=== PATIENT | female | born 1995 | race African-American/Black ===

== ENCOUNTER 2017-05-31 16:16 | Observation (INO) | payer MEDICAID ==
[~2017-05-31] VITALS: Ht 165.1 cm; Wt 95.3 kg
[2017-05-31] MEDS ORDERED: PNV1TABL76 PO (16:44)
[2017-05-31] MEDS ORDERED: DEXT 5%/LACTATED RINGERS 1,000 ML IV SCH (16:45)
[2017-05-31 17:09] LABS: BASOPHILS % 0.2 % (0.0-2.0); EOSINOPHILS % 0.6 % (0.0-5.0); HEMATOCRIT. 31.5 % (36.0-48.0); HEMOGLOBIN. 10.7 g/dL (12.0-16.0); LYMPHOCYTES % 10.7 % (20.0-50.0); MEAN CORPUSCULAR VOLUME 82.4 fL (81.0-99.0); MONOCYTES % 5.4 % (2.0-8.0); NEUTROPHILS % 83.1 % (40.0-76.0); PLATELET 192 x1000/uL (130-400); RED BLOOD CELL COUNT 3.82 mill/uL (4.2-5.4); RED CELL DISTRIBUTION WIDTH 15.2 % (11.6-14.6)
[2017-05-31 17:11] LABS: CLARITY URINE CLOUDY (CLEAR); COLOR URINE DARK YELLOW (YELLOW); KETONES URINE 2+ (NEGATIVE); LEUKOCYTE ESTERASE URINE 3+ (NEGATIVE); NITRITE URINE NEGATIVE (NEGATIVE); OCCULT BLOOD URINE NEGATIVE (NEGATIVE); PROTEIN URINE 1+ (NEGATIVE); SPECIFIC GRAVITY URINE 1.027 (1.005-1.030)
[2017-05-31 17:12] LABS: CHLORIDE 106 mEq/L (98-107)
[2017-05-31] MEDS ORDERED: CEFAZOLIN 2,000 MG in DEXT 5% WATER 100 ML IV NR (18:15)
[2017-05-31] MEDS ORDERED: CEFAZOLIN 2,000 MG in DEXTROSE 5% WATER 50 ML IV NR (18:27)
== END 2017-05-31 19:15 | disposition home or self-care (01) ==
LOC: INTOOBSV 16:16 → L&D 16:16
PROVIDERS: ADMIT Obstetrics & Gynecology; ATTEND Obstetrics & Gynecology
DX: O26.899 Other specified pregnancy related conditions, unspecified trimester (principal); R55 Syncope and collapse; Z3A.00 Weeks of gestation of pregnancy not specified
CPT/HCPCS: 36415; 76805; 76818; 80053; 81001; 85025; 96365; 99281; G0378; J0690; 96360; 96361; J7060; J7121

== ENCOUNTER 2017-06-18 00:04 | Inpatient (IN) | payer MEDICAID ==
[~2017-06-18] VITALS: Ht 165.1 cm; Wt 96.6 kg
[~2017-06-18 00:04] MED LIST: PNV1TABL76 PO
[2017-06-18] MEDS ORDERED: METHYLERGONOVINE MALEATE 0.2 MG/ML IM PRN (00:45)
[2017-06-18] MEDS ORDERED: LIDOCAINE HCL 1% 20ML VIAL (Pyxis) INJ INFIL SCH (00:45)
[2017-06-18] MEDS ORDERED: NALOXONE HCL 0.4 MG/ML 1ML VIAL IM PRN (00:45)
[2017-06-18] MEDS ORDERED: AMPICILLIN 2,000 MG in SODIUM CHLORIDE 0.9% 100 ML IV SCH (00:45)
[2017-06-18] MEDS ORDERED: CARBOPROST TROMETHAMINE 250 MCG/ML AMPUL IM PRN (00:45)
[2017-06-18] MEDS ORDERED: BUTORPHANOL TARTRATE 2 MG/ML VIAL IV PRN (00:45)
[2017-06-18] MEDS ORDERED: AMPICILLIN IV SCH (01:00)
[2017-06-18] MEDS ORDERED: DEXT 5% IV SCH (01:00)
[2017-06-18] MEDS ORDERED: WATER IV SCH (01:00)
[2017-06-18] MEDS: LACTATED RINGERS 1,000 ML IV SCH ×4 (01:09→22:43)
[2017-06-18 01:38] LABS: BASOPHILS % 0.1 % (0.0-2.0); EOSINOPHILS % 0.4 % (0.0-5.0); HEMOGLOBIN. 10.2 g/dL (12.0-16.0); LYMPHOCYTES % 14.8 % (20.0-50.0); MEAN CORPUSCULAR HEMOGLOBIN 26.7 pg (28.0-32.0); MEAN CORPUSCULAR VOLUME 80.6 fL (81.0-99.0); MEAN PLATELET VOLUME 9.2 fl (7.4-10.4); MONOCYTES % 5.9 % (2.0-8.0); NEUTROPHILS % 78.8 % (40.0-76.0); PLATELET 239 x1000/uL (130-400); RED BLOOD CELL COUNT 3.84 mill/uL (4.2-5.4); RED CELL DISTRIBUTION WIDTH 15.4 % (11.6-14.6)
[2017-06-18 01:39] LABS: CLARITY URINE CLEAR (CLEAR); COLOR URINE YELLOW (YELLOW); KETONES URINE NEGATIVE (NEGATIVE); LEUKOCYTE ESTERASE URINE 3+ (NEGATIVE); NITRITE URINE NEGATIVE (NEGATIVE); OCCULT BLOOD URINE TRACE (NEGATIVE); PH URINE 6.5 (4.5-8.0); PROTEIN URINE NEGATIVE (NEGATIVE); SPECIFIC GRAVITY URINE 1.007 (1.005-1.030); UROBILINOGEN URINE 0.2 E.U./dL (0.2-1.0)
[2017-06-18 01:46] LABS: PARTIAL THROMBOPLASTIN TIME 26.1 sec (23.4-31.0); PROTHROMBIN TIME 10.3 sec (9.4-11.6)
[2017-06-18 01:49] LABS: *AMPHETAMINES SCREEN URINE NEGATIVE (NEGATIVE); *BARBITURATES SCREEN URINE NEGATIVE (NEGATIVE); *BENZODIAZEPINES SCREEN URINE NEGATIVE (NEGATIVE); *COCAINE SCREEN URINE NEGATIVE (NEGATIVE); CANNABINOID URINE SCREEN NEGATIVE (NEGATIVE); METHADONE URINE SCREEN NEGATIVE (NEGATIVE); OPIATES URINE SCREEN NEGATIVE (NEGATIVE); PHENCYCLIDINE URINE SCREEN NEGATIVE (NEGATIVE)
[2017-06-18] MEDS: MISOPROSTOL 100MCG TABLET VG SCH ×3 (02:00→11:29)
[2017-06-18] MEDS ORDERED: AMPICILLIN 1,000 MG in SODIUM CHLORIDE 0.9% 50 ML IV SCH (08:00)
[2017-06-18 11:18] LABS: HEPATITIS B SURFACE ANTIGEN NEGATIVE
[2017-06-18] MEDS: DEXT 5%/LR + PITOCIN 20UNITS/L 1,000 ML IV SCH (18:33)
[2017-06-18] MEDS ORDERED: BUPIVACAINE HCL/NS/PF EPIDURAL 100 ML EP ONE (23:30)
[2017-06-18] MEDS ORDERED: BUPIVACAINE HCL/PF 0.25% (2.5MG/ML) 10ML ONE (23:31)
[2017-06-18] MEDS ORDERED: FENTANYL CITRATE/PF 50MCG/ML 5ML VIAL ONE (23:31)
[2017-06-18] MEDS ORDERED: EPHEDRINE SULFATE 50MG/ML VIAL ONE (23:53)
[2017-06-18] MEDS ORDERED: SODIUM CHLORIDE 0.9% 10ML VIAL ONE (23:53)
[2017-06-19] MEDS ORDERED: BUPIVACAINE HCL/NS/PF EPIDURAL 100 ML EP SCH
[2017-06-19] MEDS: LACTATED RINGERS 1,000 ML IV SCH (00:22)
[2017-06-19] MEDS ORDERED: LIDOCAINE HCL/PF 2% 20 MG/ML 10ML VIAL ONE ×2 (05:35→07:03)
[2017-06-19] MEDS ORDERED: LACTATED RINGERS 1,000 ML IV SCH (07:24)
[2017-06-19] MEDS ORDERED: CARBOPROST TROMETHAMINE 250 MCG/ML AMPUL IM PRN (07:30)
[2017-06-19] MEDS ORDERED: NALOXONE HCL 0.4 MG/ML 1ML VIAL IM PRN (07:30)
[2017-06-19] MEDS ORDERED: MISOPROSTOL 100MCG TABLET VG PRN (07:30)
[2017-06-19] MEDS ORDERED: METHYLERGONOVINE MALEATE 0.2 MG/ML IM PRN (07:30)
[2017-06-19] MEDS ORDERED: LIDOCAINE HCL 1% 20ML VIAL (Pyxis) INJ ONE (09:21)
[2017-06-19] MEDS ORDERED: DEXT 5%/LR + PITOCIN 20UNITS/L 1,000 ML IV SCH (09:41)
[2017-06-19] MEDS ORDERED: ACETAMINOPHEN WITH CODEINE 300/30MG TABLET PO PRN (09:45)
[2017-06-19] MEDS ORDERED: BENZOCAINE/LANOLIN/ALOE VERA SPRAY TOP PRN (09:45)
[2017-06-19] MEDS ORDERED: IBUPROFEN 400MG TABLET PO PRN (09:45)
[2017-06-19] MEDS ORDERED: RHO(D) IMMUNE GLOBULIN 300 MCG/SYR IM PRN (09:45)
[2017-06-19] MEDS: DEXT 5%/LR + PITOCIN 20UNITS/L 1,000 ML IV SCH (09:46)
[2017-06-19 10:30] VITALS: BP 109/71
[2017-06-19 11:00] VITALS: BP 109/72
[2017-06-19] MEDS: IBUPROFEN 600MG TABLET PO PRN (11:15)
[2017-06-19 16:00] VITALS: BP 94/54
[2017-06-19 19:45] VITALS: BP 94/51
[2017-06-19] MEDS: IBUPROFEN 800MG TABLET PO PRN (20:04)
[2017-06-20 00:01] VITALS: BP 90/51
[2017-06-20] MEDS: IBUPROFEN 800MG TABLET PO PRN (03:37)
[2017-06-20 06:24] LABS: BASOPHILS % 0.3 % (0.0-2.0); EOSINOPHILS % 1.4 % (0.0-5.0); HEMATOCRIT. 25.9 % (36.0-48.0); HEMOGLOBIN. 8.6 g/dL (12.0-16.0); LYMPHOCYTES % 10.2 % (20.0-50.0); MEAN CORPUSCULAR HEMOGLOBIN 27.4 pg (28.0-32.0); MEAN CORPUSCULAR VOLUME 82.2 fL (81.0-99.0); MEAN PLATELET VOLUME 9.2 fl (7.4-10.4); MONOCYTES % 7.2 % (2.0-8.0); NEUTROPHILS % 80.9 % (40.0-76.0); PLATELET 159 x1000/uL (130-400); RED BLOOD CELL COUNT 3.15 mill/uL (4.2-5.4); RED CELL DISTRIBUTION WIDTH 15.2 % (11.6-14.6)
[2017-06-20 09:00] VITALS: BP 102/52
[2017-06-20 17:06] VITALS: BP 104/58
[2017-06-20] MEDS: IBUPROFEN 600MG TABLET PO PRN (17:11)
[2017-06-20 20:00] VITALS: BP 98/59
[2017-06-21 04:55] VITALS: BP 95/59
[2017-06-21 08:00] VITALS: BP 101/65
== END 2017-06-21 12:10 | disposition home or self-care (01) | DRG 560 ==
LOC: L&D 00:04 → OBSVTOIN 00:04 → 7EST PP/OB 06-19 11:09
PROVIDERS: ADMIT Obstetrics & Gynecology; ATTEND Obstetrics & Gynecology
PROC: 10E0XZZ Delivery of Products of Conception, External Approach (ICD-10-PCS; principal; 2017-06-20)
PROC: 3E0R3BZ Introduction of Anesthetic Agent into Spinal Canal, Percutaneous Approach (ICD-10-PCS; 2017-06-20)
PROC: 00HU33Z Insertion of Infusion Device into Spinal Canal, Percutaneous Approach (ICD-10-PCS; 2017-06-20)
PROC: 0KQM0ZZ Repair Perineum Muscle, Open Approach (ICD-10-PCS; 2017-06-20)
DX: O36.5930 Maternal care for other known or suspected poor fetal growth, third trimester, not applicable or unspecified (principal); D64.9 Anemia, unspecified; O99.02 Anemia complicating childbirth; O70.1 Second degree perineal laceration during delivery; Z3A.38 38 weeks gestation of pregnancy; Z82.49 Family history of ischemic heart disease and other diseases of the circulatory system; Z37.0 Single live birth; Z83.3 Family history of diabetes mellitus; Z82.5 Family history of asthma and other chronic lower respiratory diseases
CPT/HCPCS: 36415; 76815; 80305; 81001; 86592; 86703; 86762; 86850; 86900; 87340; J0290; J0595; J2590; J3010; J3490; J7050; J7060; J7120; A4315